=== PATIENT | male | born 1975 | race Caucasian/White ===

== ENCOUNTER 2021-07-28 06:32 | Emergency (ER) | payer BC ==
--- NOTE | 2021-07-28 07:21 | ED ---
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 Patient reports that on the ninth he had the second vaccine injection however on the th started to develop symptoms. He tested +2 days ago. Patient has had a cough and congestion. He at first it is the nausea vomiting however that resolved and he is able to tolerate oral intake. He had one day of fevers, that resolved as well. Minimal shortness of breath only with exertion. Patient's doctor sent him in for antibody infusion.Patient has no other complaints at this time including shortness of breath, chest pain, abdominal pain, nausea or vomiting, headache, or visual changes. - Related Data Allergies Allergy/AdvReac Type Severity Reaction Status Date / Time amoxicillin [From Augmentin] Allergy Nausea & Verified 07/28/21 06:48 Vomiting & Diarrhea clarithromycin [From Biaxin] Allergy Nausea & Verified 07/28/21 06:48 Vomiting & Diarrhea clavulanic acid Allergy Nausea & Verified 07/28/21 06:48 [From Augmentin] Vomiting & Diarrhea Review of Systems ROS Statement: Those systems with pertinent positive or pertinent negative responses have been documented in the HPI. ROS Other: All systems not noted in ROS Statement are negative. Past Medical History Past Medical History: Hyperlipidemia, Hypertension, Renal Disease, Sleep Apnea/CPAP/BIPAP Additional Past Medical History / Comment(s): covid 08/01 History of Any Multi-Drug Resistant Organisms: None Reported Additional Past Surgical History / Comment(s): rt- nephrectomy Past Psychological History: No Psychological Hx Reported Smoking Status: Never smoker Past Alcohol Use History: None Reported Past Drug Use History: None Reported General Exam Limitations: no limitations General appearance: alert, in no apparent distress Head exam: Present: atraumatic Eye exam: Present: normal appearance, PERRL, EOMI. Absent: scleral icterus, conjunctival injection ENT exam: Present: normal exam, mucous membranes moist Neck exam: Present: normal inspection, full ROM. Absent: tenderness Respiratory exam: Present: normal lung sounds bilaterally. Absent: respiratory distress, wheezes Cardiovascular Exam: Present: regular rate, normal rhythm, normal heart sounds Course Vital Signs 07/28/21 06:36 Temperature 99.0 F Pulse Rate 95 Respiratory 22 Rate Blood Pressure 122/84 O2 Sat by Pulse 98 Oximetry Medical Decision Making - Medical Decision Making Vitals are stable. 98 percent on room air. I did offer IV fluids and to check patient's creatinine however he states he has been able to tolerate oral intake and does not feel this is necessary. States he follows closely outpatient for this. Patient did agree to antibody infusion which is why he is here today. Patient given strict return parameters. He does have a pulse oximeter at home. Will return for any worsening symptoms and will otherwise follow up with primary care. Disposition Clinical Impression: COVID-19 Disposition: HOME SELF-CARE Condition: Good Instructions (If sedation given, give patient instructions): Coronavirus Disease 2019 (COVID-19) Additional Instructions: Drink plenty of fluids. Take Tylenol for fevers. Follow up with primary care. Return to the emergency room for worsening symptoms such as shortness of breath. Is patient prescribed a controlled substance at d/c from ED?: No Referrals: Nonstaff,Physician [Primary Care Provider] - 1-2 days Time of Disposition: 07:20
[2021-07-28] MEDS ORDERED: SODIUM CHLORIDE 0.9% 50 ML IVPB ONE (07:30)
[2021-07-28] MEDS ORDERED: BAMLANIVIMAB (EUA) 700 MG, ETESEVIMAB (EUA) 1,400 MG in SODIUM CHLORIDE 0.9% 50 ML IVPB ONE (07:45)
[2021-07-28 08:58] VITALS: RESP 16
[2021-07-28 09:19] VITALS: BP 110/69; PULSE 68; TEMP 98.8
== END 2021-07-28 09:25 ==
LOC: EC 06:32 → PROCWHC3 06:32 → EDSTATUS 08:52 → PROCWHC3 09:25 → EDSTATUS 16:37
DX: U07.1 COVID-19 (principal); I10 Essential (primary) hypertension; E78.5 Hyperlipidemia, unspecified; Z88.0 Allergy status to penicillin; Z88.1 Allergy status to other antibiotic agents
CPT/HCPCS: 99283 ×2; 96360; M0245; J3490; 96365